=== PATIENT | female | born 1955 | race Caucasian/White ===

== ENCOUNTER 2016-11-09 20:30 | Observation (INO) ==
--- NOTE | 2016-11-09 20:37 | Emergency Department Note ---
Disposition Clinical Impression: Acute exacerbation of chronic obstructive airways disease, Hypercapnia Disposition: Admitted As Inpatient SOB HPI - General Stated Complaint: Difficulty Breathing Time Seen by Provider: 11/09/16 20:30 Source: patient Mode of arrival: private vehicle Limitations: no limitations Nursing Notes Reviewed: Yes Vital Signs Reviewed: Yes - History of Present Illness 61-year-old obese white female presents emergency department via private vehicle complaining of shortness of breath. She says that she has become progressively short of breath as he has gone on. She has been using her nebulizer treatment at home. She says she is out of her rescue inhaler. She currently does not take steroids. She says that this is the fifth To the ER in the last 2 months. She says she has not formally been diagnosed with COPD, but really has not had a chance to see a filler shredder. She has an appointment to see her family doctor tomorrow opening to be referred to a filler shredder. She says that she felt like she has had a mild fever all day and she has had a productive cough. She also wears oxygen at home at 3 L, but tonight started up to 4. - Related Data Home Medications Medication Instructions Recorded Confirmed Cyclobenzaprine [Flexeril] 10 mg PO TID 05/25/16 11/09/16 FLUoxetine HCl [Prozac] 20 mg PO DAILY 05/25/16 11/09/16 Fluticasone/Salmeterol [Advair 1 each IH BID 05/25/16 11/09/16 250-50 Diskus] Liraglutide [Victoza 2-Wm] 1.8 ml SQ DAILY 05/25/16 11/09/16 Montelukast [Singulair] 10 mg PO DAILY 05/25/16 11/09/16 OxyCODONE/APAP 7.5/325 [Percocet 1 each PO Q6HR PRN 05/25/16 11/09/16 7.5/325 MG] Losartan Potassium [Cozaar] 50 mg PO DAILY 06/16/16 11/09/16 Pravastatin Sodium [Pravachol] 40 mg PO DAILY 06/16/16 11/09/16 Albuterol Neb [Proventil Neb] 2.5 mg IH QID PRN 08/17/16 11/09/16 Esomeprazole Magnesium [Nexium 22.3 mg PO DAILY 08/17/16 11/09/16 24Hr] Oxygen 2 l NS HS 08/17/16 11/09/16 Insulin Regular U-500 [HumuLIN R 60 unit SQ TIDWM 08/18/16 11/09/16 U-500] Previous Rx's Medication Instructions Recorded Ipratropium Neb [Atrovent Neb] 0.5 mg IH Q6HR #60 vial.neb 06/16/16 Albuterol Sulfate [Proair 90 mcg IH Q4-6H PRN #1 aer.pow.ba 06/21/16 Respiclick] Alprazolam [Xanax 0.25 MG Tablet] 0.25 mg PO HS PRN #7 tablet 08/22/16 Rivaroxaban [Xarelto] 20 mg PO 1700 #30 tablet 08/22/16 LORazepam [Ativan] 1 mg PO TID PRN #6 tablet 10/27/16 Allergies Allergy/AdvReac Type Severity Reaction Status Date / Time cetirizine [From [facility]] Allergy Swelling Verified 11/09/16 20:33 of Lip/Tongue/Throat codeine AdvReac Nausea Verified 11/09/16 20:33 lisinopril AdvReac Cough Verified 11/09/16 20:33 All systems ED: reviewed and negative except as stated. Constitutional: Reports: as per HPI, fever. Denies: chills, weakness, weight change Eyes: Denies: eye pain, eye discharge, vision change ENT ED: Denies: ear pain, throat pain, dental pain, hearing loss, epistaxis, congestion, dysphagia Cardiovascular: Denies: chest pain, palpitations, dyspnea on exertion, edema, syncope Respiratory: Reports: as per HPI, cough, dyspnea, wheezes, sputum production. Denies: hemoptysis Gastrointestinal: Denies: abdominal pain, nausea, vomiting, diarrhea, constipation, hematemesis, melena, hematochezia Genitourinary: Denies: dysuria, frequency, hematuria, discharge Musculoskeletal: Denies: back pain, neck pain, arthralgia, myalgia Integumentary: Denies: rash, abrasion, lesions Neurological: Denies: headache, weakness, numbness, paresthesias, confusion, abnormal gait, vertigo Psychiatric: Denies: anxiety, depression, suicidal thoughts, homicidal thoughts , auditory hallucinations, visual hallucinations Endocrine: Denies: fatigue Hematological/Lymphatic: Denies: easy bleeding, easy bruising Allergic/Immunologic: Denies: facial swelling, urticaria Past Medical History - Past Medical History Medical history: Reports: arthritis, asthma, COPD, diabetes, GERD, hyperlipidemia, hypertension, osteoporosis, venous stasis, other Surgical history: Reports: other Psychiatric history: Reports: anxiety, depression, other RELATIONSHIP SPECIALIST history: Reports: non-contributory - Social History Smoking Status: Former smoker Smokeless Tobacco Status: No Alcohol use: Reports: none Drug use: Reports: none Physical Exam - General Limitations: no limitations General appearance: alert, in no apparent distress - Head Head exam: atraumatic, normocephalic, normal inspection - Eye Eye exam: Present: normal appearance, PERRL, EOMI - ENT ENT exam: normal exam, normal oropharynx, mucous membranes moist - Neck Neck exam: Present: normal inspection, full ROM, trachea midline - Chest Chest inspection: Present: normal inspection, symmetric chest wall rise. Absent : tenderness - Respiratory Respiratory exam: Present: wheezes, accessory muscle use, other (Decreased breath sounds, but equal bilaterally. Audible wheezes. No rhonchi or rales.). Absent: respiratory distress, stridor - Cardiovascular Cardiovascular exam: Present: regular rate, normal rhythm, normal heart sounds - Abdominal Exam Abdominal exam: Present: soft, Non-Tender. Absent: tenderness, distention, guarding, rebound, rigidity - Extremities Exam Extremities exam: Present: full ROM, pedal edema - Back Exam Back exam: Present: normal inspection, full ROM. Absent: tenderness - Neurological Exam Neurological exam: Present: alert, oriented X3, CN II-XII intact. Absent: motor sensory deficit - Psychiatric Psychiatric exam: Present: normal affect, normal mood - Skin Skin exam: Present: warm, dry, intact, normal color Course Vital Signs Temperature 98.2 F 11/09/16 20:30 Pulse Rate 102 11/09/16 20:30 Respiratory Rate 28 11/09/16 20:30 Blood Pressure 166/103 11/09/16 20:30 O2 Sat by Pulse Oximetry 93 11/09/16 20:30 Temperature 98.5 F 11/09/16 23:45 Pulse Rate 95 11/09/16 23:45 Respiratory Rate 20 11/09/16 23:45 Blood Pressure 131/79 11/09/16 23:45 O2 Sat by Pulse Oximetry 92 11/09/16 23:45 Oxygen Delivery Oxygen Delivery Bipap Shortness of Breath/Dyspnea - Lab Data Result diagrams: 11/09/16 20:52 11/09/16 20:52 Lab Results 11/09/16 11/09/16 11/09/16 Range/Units 20:38 20:52 20:52 WBC 11.5 H (4.3-11.1) K/mcL RBC 4.88 (3.82-4.97) M/mcL Hgb 10.3 L (11.5-15.4) g/dL Hct 37.3 (35.3-44.9) % MCV 76.4 L (83.0-100.0) fL MCH 21.1 L (28.0-33.3) pg MCHC 27.6 L (31.6-35.5) g/dL RDW 19.9 H (11.5-14.5) % Plt Count 357 (140-400) K/mcL MPV 9.9 (9.4-12.4) fL Immature Gran % 0.7 (0-4) % Seg Neutrophils % 67.6 % Lymphocytes % 20.1 % Monocytes % 8.4 % Eosinophils % 2.5 % Basophils % 0.7 % Neutrophils # 7.8 (1.6-8.9) K/mcL Lymphocytes # 2.3 (0.6-4.6) K/mcL Monocytes # 1.0 (0.0-1.3) K/mcL Eosinophils # 0.3 (0.0-0.6) K/mcL Basophils # 0.1 (0.0-0.2) K/mcL ABG pH 7.29 L (7.32-7.45) pH Units ABG pCO2 71 H* (35-45) mmHg ABG pO2 73 L (85-104) mmHg ABG HCO3 33.9 H (21-27) mEQ/L ABG Total CO2 36.0 H (20-26) mEq/L ABG O2 Saturation 92 L (95-98) % ABG Base Excess 5.0 H (-2.0 to 3.0) mEq/L Liter Flow 4 L/MIN Blood Gas Modality NC Inspired O2 36 % Sodium 139 (136-145) mEq/L Potassium 4.5 (3.5-4.5) mEq/L Chloride 98 (98-109) mEq/L Carbon Dioxide 30 H (19-29) mEq/L BUN 16 (7-20) mg/dL Creatinine 0.72 (0.57-1.11) mg/dL Est GFR ( Amer) > 60 (> 60) Est GFR (Non-Af Amer) > 60 (> 60) BUN/Creatinine Ratio 22 (6-26) Glucose 136 H (70-99) mg/dL Calculated Osmolality 291 (280-300) Calcium 9.1 (8.6-10.8) mg/dL Total Bilirubin 0.3 (0.2-1.2) mg/dL AST 13 (5-34) Units/L ALT 13 (0-55) Units/L Alkaline Phosphatase 113 (38-126) Units/L B-Natriuretic Peptide (0-100) pg/mL Serum Total Protein 7.7 (6.0-8.3) g/dL Albumin 3.1 L (3.5-5.0) g/dL Globulin 4.6 H (2.4-3.5) g/dL Albumin/Globulin Ratio 0.7 L (1.1-2.2) 11/09/16 Range/Units 20:52 WBC (4.3-11.1) K/mcL RBC (3.82-4.97) M/mcL Hgb (11.5-15.4) g/dL Hct (35.3-44.9) % MCV (83.0-100.0) fL MCH (28.0-33.3) pg MCHC (31.6-35.5) g/dL RDW (11.5-14.5) % Plt Count (140-400) K/mcL MPV (9.4-12.4) fL Immature Gran % (0-4) % Seg Neutrophils % % Lymphocytes % % Monocytes % % Eosinophils % % Basophils % % Neutrophils # (1.6-8.9) K/mcL Lymphocytes # (0.6-4.6) K/mcL Monocytes # (0.0-1.3) K/mcL Eosinophils # (0.0-0.6) K/mcL Basophils # (0.0-0.2) K/mcL ABG pH (7.32-7.45) pH Units ABG pCO2 (35-45) mmHg ABG pO2 (85-104) mmHg ABG HCO3 (21-27) mEQ/L ABG Total CO2 (20-26) mEq/L ABG O2 Saturation (95-98) % ABG Base Excess (-2.0 to 3.0) mEq/L Liter Flow L/MIN Blood Gas Modality Inspired O2 % Sodium (136-145) mEq/L Potassium (3.5-4.5) mEq/L Chloride (98-109) mEq/L Carbon Dioxide (19-29) mEq/L BUN (7-20) mg/dL Creatinine (0.57-1.11) mg/dL Est GFR ( Amer) (> 60) Est GFR (Non-Af Amer) (> 60) BUN/Creatinine Ratio (6-26) Glucose (70-99) mg/dL Calculated Osmolality (280-300) Calcium (8.6-10.8) mg/dL Total Bilirubin (0.2-1.2) mg/dL AST (5-34) Units/L ALT (0-55) Units/L Alkaline Phosphatase (38-126) Units/L B-Natriuretic Peptide 87 (0-100) pg/mL Serum Total Protein (6.0-8.3) g/dL Albumin (3.5-5.0) g/dL Globulin (2.4-3.5) g/dL Albumin/Globulin Ratio (1.1-2.2)
[2016-11-09] MEDS ORDERED: methylPREDNISolone 125 MG/2 ML VIAL IV ONE (20:38)
[2016-11-09] MEDS ORDERED: Ipratropium/Albuterol Neb 3 ML IH ONE (20:38)
[2016-11-09 21:06] LABS: Basophils # 0.1 K/mcL (0.0-0.2); Basophils % 0.7 %; Eosinophils # 0.3 K/mcL (0.0-0.6); Eosinophils % 2.5 %; Hematocrit 37.3 % (35.3-44.9); Hemoglobin 10.3 g/dL (11.5-15.4); Immature Granulocytes % 0.7 % (0-4); Lymphocytes # 2.3 K/mcL (0.6-4.6); Lymphocytes % 20.1 %; Mean Corpuscular HGB Conc 27.6 g/dL (31.6-35.5); Mean Corpuscular Hemoglobin 21.1 pg (28.0-33.3); Mean Corpuscular Volume 76.4 fL (83.0-100.0); Mean Platelet Volume 9.9 fL (9.4-12.4); Monocytes % 8.4 %; Neutrophils # 7.8 K/mcL (1.6-8.9); Platelet Count 357 K/mcL (140-400); Red Blood Count 4.88 M/mcL (3.82-4.97); Red Cell Distribution Width 19.9 % (11.5-14.5); Segmented Neutrophils % 67.6 %
[2016-11-09 21:16] LABS: Alanine Aminotransferase 13 Units/L (0-55); Albumin 3.1 g/dL (3.5-5.0); Albumin/Globulin Ratio 0.7 (1.1-2.2); Alkaline Phosphatase 113 Units/L (38-126); Aspartate Amino Transferase 13 Units/L (5-34); BUN/Creatinine Ratio 22 (6-26); Bilirubin,Total 0.3 mg/dL (0.2-1.2); Blood Urea Nitrogen 16 mg/dL (7-20); Calcium 9.1 mg/dL (8.6-10.8); Carbon Dioxide 30 mEq/L (19-29); Chloride 98 mEq/L (98-109); Globulin 4.6 g/dL (2.4-3.5); Glucose 136 mg/dL (70-99); Osmolality,Calculated 291 (280-300); Potassium 4.5 mEq/L (3.5-4.5); Sodium 139 mEq/L (136-145); Total Protein 7.7 g/dL (6.0-8.3); eGFR For African Americans > 60 (> 60); eGFR For Non-African Americans > 60 (> 60)
[2016-11-09 21:28] LABS: ABG PH 7.29 pH Units (7.32-7.45)
[2016-11-09 21:29] LABS: ABG HCO3 33.9 mEQ/L (21-27); ABG Oxygen Saturation 92 % (95-98); ABG PO2 73 mmHg (85-104)
[2016-11-09 21:30] LABS: Blood Gas Liter Flow 4 L/MIN
[2016-11-09 21:31] LABS: ABG PCO2 71 mmHg (35-45)
[2016-11-09 21:34] LABS: Blood Gas FiO2 36 %
[2016-11-10] MEDS ORDERED: Naloxone 0.4 MG/ML INJ IVP PRN (01:32)
[2016-11-10] MEDS ORDERED: *HR* Promethazine 25 MG/ML VIAL IVP PRN (01:32)
[2016-11-10] MEDS ORDERED: Ondansetron ODT 4 MG TAB.RAPDIS SL PRN (01:32)
[2016-11-10] MEDS ORDERED: *HR* OxyCODONE/APAP 7.5/325 TABLET PO PRN ×2 (01:32→02:23)
[2016-11-10] MEDS ORDERED: *HR* Morphine 2 MG/ML SYRINGE IVP PRN (01:32)
[2016-11-10] MEDS ORDERED: *HR* LORazepam 1 MG TABLET PO PRN (01:32)
[2016-11-10] MEDS ORDERED: (Albuterol Sulfate [Proair Respiclick] 90 MCG) IH PRN (01:32)
[2016-11-10] MEDS ORDERED: *HR* HYDROcodone/Acet 5/325 mg TABLET PO PRN (01:32)
[2016-11-10] MEDS ORDERED: Acetaminophen 325 MG TABLET PO PRN (01:32)
[2016-11-10] MEDS ORDERED: ALPRAZolam 0.25 MG TABLET PO PRN (01:32)
[2016-11-10] MEDS ORDERED: Ipratropium Neb 0.5 MG NEBULIZER IH SCH (04:00)
[2016-11-10] MEDS ORDERED: Albuterol 2.5 MG/3 ML NEBULIZER IH SCH (05:00)
[2016-11-10] MEDS: Ipratropium/Albuterol Neb 3 ML IH SCH ×2 (05:12→11:06)
[2016-11-10 08:27] LABS: ABG PH 7.25 pH Units (7.32-7.45)
[2016-11-10 08:28] LABS: ABG HCO3 35.9 mEQ/L (21-27); ABG PCO2 81 mmHg (35-45); ABG PO2 101 mmHg (85-104); ABG TCO2 38.4 mEq/L (20-26)
[2016-11-10 08:29] LABS: ABG Base Excess 5.7 mEq/L (-2.0 to 3.0); ABG Oxygen Saturation 96 % (95-98)
[2016-11-10] MEDS ORDERED: FLUoxetine 20 MG CAPSULE PO SCH (09:00)
[2016-11-10] MEDS ORDERED: (Liraglutide [Victoza 2-Pak] 1.8 ML) SQ SCH (09:00)
[2016-11-10] MEDS ORDERED: Budesonide/Formoterol 80/4.5 MDI IH SCH (10:00)
[2016-11-10 10:29] LABS: ABG PH 7.24 pH Units (7.32-7.45)
[2016-11-10 10:30] LABS: ABG PCO2 82 mmHg (35-45)
[2016-11-10 10:31] LABS: ABG Base Excess 4.3 mEq/L (-2.0 to 3.0); ABG HCO3 34.6 mEQ/L (21-27); ABG Oxygen Saturation 95 % (95-98); ABG PO2 93 mmHg (85-104); ABG TCO2 37.1 mEq/L (20-26)
[2016-11-10 11:47] VITALS: BP 116/72
--- NOTE | 2016-11-10 14:17 | Internal Med History&Physical ---
Date of Encounter: 11/10/16 Time of Encounter: 10:00 Assessment and Plan (1) Acute on chronic respiratory failure with hypoxia and hypercapnia Current visit: No Status: Acute (2) Emphysema of lung Current visit: No Status: Chronic Qualifiers: Emphysema type: unspecified Qualified Code(s): J43.9 - Emphysema, unspecified (3) Venous stasis ulcer of lower extremity Current visit: No Status: Chronic Qualifiers: Laterality: unspecified laterality Qualified Code(s): I83.009 - Varicose veins of unspecified lower extremity with ulcer of unspecified site (4) Morbid obesity with BMI of 60.0-69.9, adult Current visit: No Status: Chronic (5) Diabetes mellitus Current visit: No Status: Acute Qualifiers: Diabetes mellitus type: type 2 Diabetes mellitus complication status: with unspecified complications Diabetes mellitus retirement insulin use: with retirement use Qualified Code(s): E11.8 - Type 2 diabetes mellitus with unspecified complications; Z79.4 - [facility] (current) use of insulin (6) Hypercapnia Current visit: Yes Status: Acute Internal Medicine - H&P: HPI Chief complaint: Patient presented to the emergency room early this able chief complaint tabitha Admitted From: Emergency Dept Plans for Post Hospital Care: Home History of present illness: Ms. Franco is a 61 year old female Patient had a history of breathing problems. 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 She was introduced to the floor on CPAP because her PTH was low her CO2 was high but her oxygen was stable. It was then noted that the patient was experiencing runs of V. tach and a pulse was explained to me by nursing I did not see it myself. But I did see several runs of V. tach 4-6 seconds. In addition she whirly obese and her 55 kg. Chest x-ray showed bilateral infiltrates. Past Med Surg Social Fam HX - Past Medical History Medical history: arthritis, asthma, COPD, diabetes, GERD, hyperlipidemia, hypertension, osteoporosis, venous stasis, other Psychiatric history: anxiety, depression, other - Past Surgical History Surgical History: other - Social History Smoking Status: Former smoker Smokeless Tobacco Status: No Alcohol use: none Drug use: none - Family History Mother History Unknown: Yes Father History Unknown: Yes Internal Medicine - H&P: Meds Cyclobenzaprine [Flexeril] 10 mg PO TID 05/25/16 [History] FLUoxetine HCl [Prozac] 20 mg PO DAILY 05/25/16 [History] Fluticasone/Salmeterol [Advair 250-50 Diskus] 1 each IH BID 05/25/16 [History] Liraglutide [Victoza 2-Wm] 1.8 ml SQ DAILY 05/25/16 [History] Montelukast [Singulair] 10 mg PO DAILY 05/25/16 [History] OxyCODONE/APAP 7.5/325 [Percocet 7.5/325 MG] 1 each PO Q6HR PRN 05/25/16 [ History] Ipratropium Neb [Atrovent Neb] 0.5 mg IH Q6HR #60 vial.neb 06/16/16 [Rx] Losartan Potassium [Cozaar] 50 mg PO DAILY 06/16/16 [History] Pravastatin Sodium [Pravachol] 40 mg PO DAILY 06/16/16 [History] Albuterol Sulfate [Proair Respiclick] 90 mcg IH Q4-6H PRN #1 aer.pow.ba [Rx] Albuterol Neb [Proventil Neb] 2.5 mg IH QID PRN 08/17/16 [History] Esomeprazole Magnesium [Nexium 24Hr] 22.3 mg PO DAILY 08/17/16 [History] Oxygen 2 l NS HS 08/17/16 [History] Insulin Regular U-500 [HumuLIN R U-500] 60 unit SQ TIDWM 08/18/16 [History] Alprazolam [Xanax 0.25 MG Tablet] 0.25 mg PO HS PRN #7 tablet 08/22/16 [Rx] Rivaroxaban [Xarelto] 20 mg PO 1700 #30 tablet 08/22/16 [Rx] LORazepam [Ativan] 1 mg PO TID PRN #6 tablet 10/27/16 [Rx] Allergies cetirizine [From Zyrtec] Allergy (Verified 11/09/16 20:33) Swelling of Lip/Tongue/Throat codeine Adverse Reaction (Verified 11/09/16 20:33) Nausea lisinopril Adverse Reaction (Verified 11/09/16 20:33) Cough All Systems PM: A 10-system review of systems was performed and is negative for pertinent findings except as documented above in the HPI. - Constitutional Vitals: Temp Pulse Resp BP Pulse Ox 97.7 F 93 24 116/72 94 11/10/16 11:00 11/10/16 11:00 11/10/16 11:00 11/10/16 11:00 11/10/16 11:00 - Head Head exam: Present: atraumatic, normocephalic - Neck Neck exam general surgery: Present: supple, trachea midline. Absent: lymphadenopathy - Respiratory Respiratory exam: Present: CTAB. Absent: accessory muscle use, rales, rhonchi, wheezes - Cardiovascular Cardiovascular exam: Present: RRR, +S1, +S2. Absent: diastolic murmur, gallop, rubs, systolic murmur Internal Med - H&P Results - Labs CBC & Chem 7: 11/09/16 20:52 11/09/16 20:52 Labs: lab Does not look bad .see abgs . - ABG Interpretation ABG results: 11/10/16 11/10/16 08:05 10:10 ABG pH 7.25 L 7.24 L ABG pCO2 81 H* 82 H* ABG pO2 101 93 ABG HCO3 35.9 H 34.6 H ABG Total CO2 38.4 H 37.1 H ABG O2 Saturation 96 95 ABG Base Excess 5.7 H 4.3 H
--- NOTE | 2016-11-10 14:45 | Discharge Summary ---
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 installer Qualifiers: Emphysema type: unspecified Qualified Code(s): J43.9 - Emphysema, unspecified (3) Venous stasis ulcer of lower extremity Priority: Secondary Status: Chronic Comments: By his Qualifiers: Laterality: unspecified laterality Qualified Code(s): I83.009 - Varicose veins of unspecified lower extremity with ulcer of unspecified site (4) Morbid obesity with BMI of 60.0-69.9, adult Priority: Secondary Status: Chronic Comments: Noted atrophy associated with sleep apnea (5) Diabetes mellitus Priority: Secondary Status: Acute Qualifiers: Diabetes mellitus type: type 2 Diabetes mellitus complication status: with unspecified complications Diabetes mellitus intermediate frame tender insulin use: with long-term use Qualified Code(s): E11.8 - Type 2 diabetes mellitus with unspecified complications; Z79.4 - termite exterminator helper (current) use of insulin (6) Hypercapnia Priority: Primary Status: Acute Comments: CABG - Discharge Medications Home Medications: Cyclobenzaprine [Flexeril] 10 mg PO TID 05/25/16 [History] FLUoxetine HCl [Prozac] 20 mg PO DAILY 05/25/16 [History] Fluticasone/Salmeterol [Advair 250-50 Diskus] 1 each IH BID 05/25/16 [History] Liraglutide [Victoza 2-Wm] 1.8 ml SQ DAILY 05/25/16 [History] Montelukast [Singulair] 10 mg PO DAILY 05/25/16 [History] OxyCODONE/APAP 7.5/325 [Percocet 7.5/325 MG] 1 each PO Q6HR PRN 05/25/16 [ History] Ipratropium Neb [Atrovent Neb] 0.5 mg IH Q6HR #60 vial.neb 06/16/16 [Rx] Losartan Potassium [Cozaar] 50 mg PO DAILY 06/16/16 [History] Pravastatin Sodium [Pravachol] 40 mg PO DAILY 06/16/16 [History] Albuterol Sulfate [Proair Respiclick] 90 mcg IH Q4-6H PRN #1 aer.pow.ba [Rx] Albuterol Neb [Proventil Neb] 2.5 mg IH QID PRN 08/17/16 [History] Esomeprazole Magnesium [Nexium 24Hr] 22.3 mg PO DAILY 08/17/16 [History] Oxygen 2 l NS HS 08/17/16 [History] Insulin Regular U-500 [HumuLIN R U-500] 60 unit SQ TIDWM 08/18/16 [History] Alprazolam [Xanax 0.25 MG Tablet] 0.25 mg PO HS PRN #7 tablet 08/22/16 [Rx] Rivaroxaban [Xarelto] 20 mg PO 1700 #30 tablet 08/22/16 [Rx] LORazepam [Ativan] 1 mg PO TID PRN #6 tablet 10/27/16 [Rx] Allergies/Adverse Reactions: Allergies cetirizine [From yrte] Allergy (Verified 11/09/16 20:33) Swelling of Lip/Tongue/Throat codeine Adverse Reaction (Verified 11/09/16 20:33) Nausea lisinopril Adverse Reaction (Verified 11/09/16 20:33) Cough Date of admission: 11/09/16 22:33 Primary care physician: Marychuy Huston Discharging clinician: Loc Feldman Anticipated date of discharge: 11/10/16 - Patient Status Disposition: Transfer Other Condition: Serious Functional capacity at discharge: bed bound Overall status at discharge: patient is not back to baseline - Discharge Instructions Forms: ED Satisfaction Letter - Diet and Activity Activity: other Diet: advance to your usual diet, diabetic diet Interval History: Patient actually was warm and dry vital signs were stable but she was having 4- 6 second runs of V. tach occasional Flavio's which I did not notice myself. She has chest x-ray shows possible bilateral infiltrates. The patient has been increasingly short of breath. Therefore she was immediately set up for transfer [employer] is not seen a hydraulic and plumbing installer or tour bus driver/guide. Hospital course: Ms. Franco is a 61 year old female She was here brief period time monitored her and rechecked her ABGs. She actually was completely alert and oriented was warm and dry to the touch. But I will work to be sure she was worse she could be seen for subspecialty care. - Time Spent with Patient Total time spent providing and/or coordinating discharge services: Less than 30 minutes - Constitutional Vitals: Temp Pulse Resp BP Pulse Ox 97.7 F 93 24 116/72 94 11/10/16 11:00 11/10/16 11:00 11/10/16 11:00 11/10/16 11:00 11/10/16 11:00 - Head Head exam: Present: atraumatic, normal inspection, normocephalic - Respiratory Respiratory exam: Present: decreased breath sounds, CTAB. Absent: accessory muscle use, rales, rhonchi, wheezes - Cardiovascular Cardiovascular exam: Present: RRR, +S1, +S2. Absent: diastolic murmur, gallop, rubs, systolic murmur
[2016-11-10] MEDS ORDERED: *HR* Rivaroxaban 10 MG TABLET PO SCH (17:00)
[2016-11-10] MEDS ORDERED: NON-FORMULARY MEDICATION 1 EACH EACH (Oxygen [Oxygen] 2 L) NS SCH (21:00)
== END 2016-11-10 14:30 | disposition short-term general hospital (02) ==
LOC: INPGRE 20:30 → EMEROOGRE 20:30 → INPGRE 23:08
PROVIDERS: ADMIT Internal Medicine; ATTEND Internal Medicine